=== PATIENT | female | born 1995 | race Caucasian/White ===

== ENCOUNTER 2017-10-18 13:23 | Emergency (ER) | payer OTHER ==
[2017-10-18] MEDS: LIDOCAINE 2%/EPI MPF (SDV) 20 ML VIAL INJ (15:36)
== END 2017-10-18 16:46 | disposition home or self-care (01) ==
LOC: FTE 13:23
DX: S01.511A Laceration without foreign body of lip, initial encounter (principal); Y04.8XXA Assault by other bodily force, initial encounter
CPT/HCPCS: 12011; 99284-25